=== PATIENT | female | born 1990 | race Hispanic/Latino ===

== ENCOUNTER 2019-11-24 13:31 | Emergency (ER) | payer MEDICAID, SELFPAY ==
[2019-11-24] VITALS (13 sets, daily range): BP systolic 104–111; BP diastolic 66–77; PULSE 86–102; RESP 12–28; TEMP 36.6; O2SAT 98–100
--- NOTE | ~2019-11-24 | CT_ITS ---
EXAMINATION: CTA chest PE protocol EXAM DATE: 11/24/2019 16:24 INDICATION: Dyspnea. Frequency and chest pain. Exposure to COVID 19. TECHNIQUE: Spiral CTA of the chest (pulmonary arteries) was performed with 100 cc Omnipaque 350 intr avenous contrast injection. Images were acquired during the pulmonary arterial phase. Coronal maxi mum intensity projection 3D-reconstructions were created by the technologist on dedicated workstation . Axial, coronal and sagittal reformatted images were reviewed. The dose-length product (DLP) for t his examination was 158.97 mGy-cm. The exposure was tailored according to patient size (auto mA exp osure control), and iterative reconstruction (ASIR) was used as additional dose reduction technique. There is no prior study for comparison. FINDINGS: There are no pulmonary emboli in the 1st through 3rd order (central and interlobar) pulmon abdias arteries. Some loss of attenuation in the left segmental pulmonary arteries due to respiratory m otion, but no intraluminal filling defects suspected. No thoracic aortic dissection. Small region of groundglass airspace disease in the right middle lobe perihilar region which is nonspecific, but c ould be acute lung injury, acute infectious process. There are no pleural or pericardial effusions. Tracheobronchial tree is patent. There is no mediastinal, hilar or axillary lymphadenopathy. Th ere is no pneumothorax. Heart normal in size. No evidence of coronary arterial calcification. Up per abdomen is unremarkable. There is thoracic spondylosis without osteoblastic or osteolytic lesio ns identified. IMPRESSION: 1. Limited left segmental evaluation, but no pulmonary emboli are suspected. 2. Small amount of right middle lobe groundglass acute airspace disease, likely acute infectious pro cess. Could be acute lung injury (in patient with known exposure to COVID 19). Reviewed, dictated and finalized at location A. IMPRESSION: 1. Limited left segmental evaluation, but no pulmonary emboli are suspected. 2. Small amount of right middle lobe groundglass acute airspace disease, likel y acute infectious process. Could be acute lung injury (in patient with known e xposure to COVID 19).
--- NOTE | ~2019-11-24 | XR_ITS ---
XR chest 1V 11/24/2019 14:35 Indication: Shortness of breath and cough Procedure: 2 view chest Comparison: No prior studies for comparison. Findings: Borderline heart size. No focal air space disease, pulmonary edema, pleural effusion or maureen pected pneumothorax. No acute osseous abnormality. Impression: 1: No acute cardiopulmonary disease. Reviewed, dictated and finalized at location A. Impression: 1: No acute cardiopulmonary disease.
--- NOTE | 2019-11-24 13:44 | ECG_ITS ---
Measurements Intervals [place] Rate: 85 P: 16 VT: 181 QRS: 65 QRSD: 85 T: 5 QT: 338 QTc: 403 Interpretive Statements SINUS RHYTHM DELAYED PRECORDIAL R/S TRANSITION BORDERLINE ST-T WAVE ABNORMALITY- INFERIOR LEADS BASELINE ARTIFACT- I, II, AVR BORDERLINE ECG Electronically Signed On 11-24-2019 14:11:19 CDT by Jean Orellana D.O.
[2019-11-24 13:54] LABS: Basophils Percent Auto 0.5 % (0.2-1.2); Eosinophils Percent Auto 0.2 % (0-4.4); Hemoglobin 11.5 g/dL (12.0-15.0); Immature Granulocyte Absolute 0.01 K/mm3 (0.00-0.031); Immature Granulocyte Percent A 0.2 % (0-0.5); Lymphocytes Absolute Auto 1.65 K/mm3 (0.9-3.2); Lymphocytes Percent Auto 38.2 % (18.3-44.2); Mean Corpuscular HGB Conc 33.8 g/dl (32-36); Mean Corpuscular Hemoglobin 30.3 pg (26-34); Mean Corpuscular Volume 89.7 fl (80-100); Mean Platelet Volume 11.1 fl (7.4-10.4); Monocytes Absolute Auto 0.5 K/mm3 (0.1-0.6); Monocytes Percent Auto 11.3 % (2.6-8.5); Neutrophils Absolute Auto 2.1 K/mm3 (1.3-6.7); Neutrophils Percent Auto 49.6 % (45.5-73.1); Platelet Count Result 179 k/mm3 (150-375); Red Blood Count 3.79 M/mm3 (4.2-5.4); Red Cell Distribution Width 13.3 % (11.5-14.5); White Blood Count 4.3 K/mm3 (4.5-10.0)
[2019-11-24 14:06] LABS: Blood Urea Nitrogen 3 mg/dL (7-17); Calcium 8.5 mg/dL (8.4-10.2); Carbon Dioxide 20 mmol/L (22-30); Chloride 108 mmol/L (98-107); Estimated CRCL calculation 107 ml/min; Estimated Glomerular Filt Rate > 60; Glucose 92 mg/dL (65-105); Potassium 3.5 mmol/L (3.4-5.0); Sodium 136 mmol/L (137-145)
--- NOTE | 2019-11-24 14:28 | ED.GENADULT ---
HPI - General Adult General Chief complaint: Shortness of Breath/Dyspnea Stated complaint: cough, sob, family with covid Time Seen by Provider: 11/24/19 14:25 Source: patient Mode of arrival: ambulatory Limitations: no limitations History of Present Illness HPI narrative: Patient is a 29-year-old female, currently 35 weeks , who presents to the emergency department for evaluation of multiple symptoms including cough, shortness of breath with exertion, nephrology, chest pain, rhinorrhea, sore throat and congestion. Patient lives with an uncle who had a positive coronavirus test. Patient denies any nausea, vomiting, belly pain, loss of fluids or vaginal bleeding. She has had good movement. She follows with an [facility] in [place], she has been driving back and forth for appointments and plans to deliver in [place] at this time. Patient reports aching chest pain, dry cough over the past week. No shortness of breath currently. No pain with deep inspiration. No leg swelling, leg pain. Related Data Home Medications Medication Instructions Recorded Confirmed no.144-folic acid mcg PO 11/24/19 [] Allergies Allergy/AdvReac Type Severity Reaction Status Date / Time No Known Allergies Allergy Verified 11/24/19 13:38 Review of Systems Review of Systems: Narrative: CONSTITUTIONAL: Reports fever and chills EYES: Denies visual changes, redness, or discharge. ENT: Reports rhinorrhea, congestion, sore throat CARDIOVASCULAR: Reports chest pain, denies palpitations, or edema. RESPIRATORY: Reports cough and shortness of breath GASTROINTESTINAL: Denies abdominal pain, nausea, vomiting, reports diarrhea GENITOURINARY: Denies dysuria or hematuria. SKIN: Denies rash or itching. MUSCULOSKELETAL: Denies back pain, joint pain, or myalgia. NEUROLOGIC: Denies headache, numbness, or weakness. [facility] Past Medical History Medical History (Updated 11/24/19 @ 16:42 by Xiomara Flower MD) Social History Social History (Updated 11/24/19 @ 14:45 by Xiomara Flower MD) Smoking status: Never smoker Alcohol intake: never Substance use: never Living arrangements: with family Gender identity (if verbalized by the patient): Female Exam Narrative: Exam Narrative: GENERAL: Awake, alert, conversant HEAD: Normocephalic, atraumatic. EYES: PERRLA and EOMI. ENT: Nares clear, no rhinorrhea or epistaxis. Mucous membranes moist. NECK: Supple. CHEST: No respiratory distress, breathing even and non labored HEART: Regular rate, sinus rhythm ABDOMEN: Gravid, fundus palpable below the xiphoid, non distended, non tender EXTREMITIES: Normal range of motion. No edema. SKIN: Warm, dry, no rash. NEURO:No focal deficits. Alert and oriented x3 Course Course Emergency Course: Patient is a 29-year-old female who presented for myriad of symptoms, with known coronavirus exposure. Patient had influenza in September, has been reporting some chest pain without any acute ischemic findings on EKG. Chest x-ray without evidence of pneumonia. Laboratory results are reassuring. No sign of severe coronavirus infection based on laboratory studies. Did not obtain a d-dimer on this patient because she is would likely be positive, given chest pain, dyspnea, did obtain a CTA which is negative for PE. There is possible acute lung findings that would be consistent with coronavirus infection, but patient was ambulated in the emergency department and had no transient oxygen desaturation. No severe tachycardia. If this is early bacterial pneumonia, will treat with cefdinir. At this point, no severe disease processes. We did send a coronavirus test, and she will be updated as to the results of that. At this point, continue to recommend supportive care, Tylenol for fever, OB follow-up as scheduled and to mask if out in public as she could spread the infection to others. Vital Signs Vital signs: Vital Signs Temperatu
[2019-11-24 15:23] LABS: Troponin I < 0.012 ng/mL (0.000-0.034)
[2019-11-24 15:24] LABS: Prothrombin Time 13.2 Seconds (11.1-14.7)
[2019-11-24 15:25] LABS: Partial Thromboplastin Time 27.7 SECONDS (22.3-36.8)
--- NOTE | 2019-11-24 15:25 | PC.NURSE ---
Additional blood collected and oropharynx swabbed for covid testing.
--- NOTE | 2019-11-24 15:35 | PC.NURSE ---
Pt ambulatory around the room with pulse oximetry in place. Pt states feels short of breath but that this is not unusual. Sp02 remained at 100% throughout ambulation.
[2019-11-24 15:38] LABS: Lactate Dehydrogenase 375 U/L (313-618)
[2019-11-24 15:56] LABS: Ferritin 8.89 ng/mL (6.24-137)
[2019-11-27 08:03] LABS: SARS-CoV-2 RNA PCR Positive
== END 2019-11-24 17:10 | disposition home or self-care (01) ==
PROVIDERS: Emergency Medicine; Emergency Provider Emergency Medicine
DX: O98.513 Other viral diseases complicating pregnancy, third trimester (principal); U07.1 COVID-19; O99.513 Diseases of the respiratory system complicating pregnancy, third trimester; J06.9 Acute upper respiratory infection, unspecified; R94.31 Abnormal electrocardiogram [ECG] [EKG]; Z3A.35 35 weeks gestation of pregnancy
CPT/HCPCS: 36415; 71045; 71275; 80048; 82728; 83615; 84484; 85025; 85610; 85730; 87635; 93005; 99284; C9803; Q9967; U0003

== ENCOUNTER 2019-11-28 02:48 | Emergency (ER) | payer MEDICAID, SELFPAY ==
--- NOTE | ~2019-11-28 | XR_ITS ---
XR chest 1V portable 11/28/2019 03:51 Indication: Cough. Shortness of breath. Procedure: 2 view chest Comparison: 11/24/2019 Findings: Subtle right middle lobe infiltrate. Heart size normal. No pleural effusion or pneumothorax . No acute osseous abnormality. Impression: 1: Subtle right middle lobe infiltrate which may represent atelectasis or developing pneumonia. Reviewed, dictated and finalized at location A. Impression: 1: Subtle right middle lobe infiltrate which may represent atelectasis or devel oping pneumonia.
--- NOTE | 2019-11-28 03:12 | ECG_ITS ---
Measurements Intervals [place] Rate: 96 P: 36 MO: 182 QRS: 76 QRSD: 88 T: 11 QT: 336 QTc: 426 Interpretive Statements SINUS RHYTHM POSSIBLE LEFT ATRIAL ENLARGEMENT DELAYED PRECORDIAL R/S TRANSITION BORDERLINE ECG Electronically Signed On 11-28-2019 7:23:20 CDT by Jean Orellana D.O.
[2019-11-28 03:17] VITALS: BP 106/64; PULSE 92; RESP 21; TEMP 37.1; O2SAT 100
--- NOTE | 2019-11-28 03:20 | PC.NURSE ---
called ob to have pt's baby monitored.
--- NOTE | 2019-11-28 03:25 | PC.NURSE ---
OB RN at pt bedside.
--- NOTE | 2019-11-28 03:26 | ED.SOB ---
HPI - SOB/Dyspnea General Chief Complaint: Shortness of Breath/Dyspnea Stated Complaint: +COVID SOB, Time Seen by Provider: 11/28/19 02:56 Source: patient Mode of arrival: ambulatory Limitations: no limitations History of Present Illness HPI Narrative: Patient is a 29-year-old female who presents to the emergency department with complaint of cough and shortness of breath. Patient was seen in this emergency department on 11/24/2019 and diagnosed with COVID-19. Patient is currently 36 weeks , G2, P1. She just moved to [place] from [place] in the past month and plans to go back to her home in [place] when she recovers from COVID-19 to deliver her baby with the OB she has been seeing this . Patient states she initially started out with fever, sore throat, headache, and nasal congestion. She had known COVID-19 sick contacts. Patient reports developing cough and shortness of breath over the last couple of days. Patient states she has not felt her baby move since 6 PM last night. MD elicited complaint: shortness of breath and cough Context: recent illness Related Data Home oxygen amount: none Home Medications Medication Instructions Recorded Confirmed no.144-folic acid mcg PO 11/24/19 [] Allergies Allergy/AdvReac Type Severity Reaction Status Date / Time No Known Allergies Allergy Verified 11/24/19 13:38 Review of Systems Review of Systems: All systems reviewed & are unremarkable except as noted in HPI and below Constitutional: Constitutional: Reports fever(s) ENT: Reports nasal congestion and Reports sore throat Cardiovascular: Cardiovascular: Reports chest pain (Burning) Respiratory: Respiratory: Reports cough and Reports dyspnea Gastrointestinal: Gastrointestinal: Denies abdominal pain, Reports diarrhea, Reports nausea and Reports vomiting Genitourinary: Genitourinary: Denies abnormal vaginal bleeding, Denies dysuria, Denies vaginal discharge and Reports other (Denies contractions) [facility] Past Medical History Medical History Social History Social History Smoking status: Never smoker Alcohol intake: never Substance use: never Gender identity (if verbalized by the patient): Female Exam Const: General: cooperative, no acute distress and alert Nutritional Appearance: well nourished Orientation/consciousness: patient oriented x3 Limitations: no limitations Resp: Effort & Inspection: normal respiratory effort, Actively coughing actively coughing and tachypneic Auscultation: clear to auscultation bilaterally Cardio: Rate: tachycardic Rhythm: regular rhythm GI: GI Palp: Yes Soft to palpation and No Tenderness to palpation present (GI) Auscultation: normal bowel sounds : Other: Uterus gravid, consistent with dates. No palpable contractions noted Skin: General skin exam: normal color Neuro: General: patient oriented x3 Cognition (Neuro): normal cognition Speech: normal speech Extrem: General: normal to inspection, full ROM and no clubbing, cyanosis or edema Psych: Mental Status: mental status grossly normal Affect: normal affect Attitude: cooperative Course Course Emergency Course: Patient placed on monitoring by OB nurse. heart rate 145. Patient with 15 beat accelerations. No evidence of contractions or labor. Nonstress test reactive. Patient given 1 L of IV fluids with improvement in heart rate. Patient with O2 saturation of 100% on room air. Chest x-ray unchanged from prior ED visit. Patient counseled on ongoing symptomatic management and strict quarantine precautions except for healthcare as needed Vital Signs Vital signs: Vital Signs Temperature 98.7 F 11/28/19 03:17 Pulse Rate 92 11/28/19 03:17 Respiratory Rate 21 H 11/28/19 03:17 Blood Pressure 106/64 11/28/19 03:17 Pulse Oxime
[2019-11-28] MEDS: LACTATED RINGERS 1,000 ML 999 ML IV CONT (03:48)
[2019-11-28 03:49] VITALS: BP 102/73; PULSE 91; PULSE 93; RESP 14; O2SAT 100
[2019-11-28 04:08] LABS: Basophils Percent Auto 0.2 % (0.2-1.2); Hematocrit 33.9 % (37.0-47.0); Hemoglobin 11.6 g/dL (12.0-15.0); Immature Granulocyte Absolute 0.01 K/mm3 (0.00-0.031); Immature Granulocyte Percent A 0.2 % (0-0.5); Lymphocytes Absolute Auto 1.66 K/mm3 (0.9-3.2); Lymphocytes Percent Auto 37.1 % (18.3-44.2); Mean Corpuscular HGB Conc 34.2 g/dl (32-36); Mean Corpuscular Hemoglobin 30.4 pg (26-34); Mean Corpuscular Volume 88.7 fl (80-100); Monocytes Absolute Auto 0.3 K/mm3 (0.1-0.6); Monocytes Percent Auto 7.6 % (2.6-8.5); Neutrophils Absolute Auto 2.5 K/mm3 (1.3-6.7); Neutrophils Percent Auto 54.9 % (45.5-73.1); Platelet Count Result 169 k/mm3 (150-375); Red Blood Count 3.82 M/mm3 (4.2-5.4); Red Cell Distribution Width 13.2 % (11.5-14.5); White Blood Count 4.5 K/mm3 (4.5-10.0)
[2019-11-28 04:17] LABS: Add Urine Microscopic? NO; Appearance Urine Clear (Clear); Bilirubin Urine Negative (Negative); Blood Urine Negative (Negative); Color Urine Straw (Yellow); Glucose Urine UA Negative (Negative); Ketones Urine Negative (Negative); Leukocyte Esterase Ur Negative LEU/UL (Negative); Nitrate Urine Negative (Negative); Protein Urine Negative (Negative); Specific Grav Ur 1.005 (1.001-1.035); Urobilinogen Urine Negative mg/dL (<2.0)
[2019-11-28 04:19] LABS: Alanine Aminotransferase 14 U/L (4-35); Albumin Level 3.4 g/dL (3.5-5.1); Alkaline Phosphatase 100 U/L (38-126); Aspartate Amino Transferase 27 U/L (14-36); Bilirubin,Total 0.3 mg/dL (0.2-1.3); Carbon Dioxide 20 mmol/L (22-30); Chloride 106 mmol/L (98-107); Estimated Glomerular Filt Rate > 60; Glucose 73 mg/dL (65-105); Potassium 3.5 mmol/L (3.4-5.0); Sodium 134 mmol/L (137-145)
[2019-11-28 04:21] LABS: Blood Urea Nitrogen < 2 mg/dL (7-17)
[2019-11-28 04:28] VITALS: BP 107/75; PULSE 97; RESP 23; O2SAT 100
[2019-11-28 04:31] LABS: Troponin I < 0.012 ng/mL (0.000-0.034)
[2019-11-28 05:15] VITALS: BP 118/76; PULSE 84; RESP 23; O2SAT 98
== END 2019-11-28 05:15 | disposition home or self-care (01) ==
PROVIDERS: Emergency Provider Emergency Medicine
DX: O98.513 Other viral diseases complicating pregnancy, third trimester (principal); U07.1 COVID-19; E86.0 Dehydration; Z3A.36 36 weeks gestation of pregnancy; R94.31 Abnormal electrocardiogram [ECG] [EKG]
CPT/HCPCS: 36415; 71045; 80053; 81003; 84484; 85025; 93005; 96360; 99284; J7120

== ENCOUNTER 2020-07-02 13:57 | Emergency (ER) | payer BC, SELFPAY ==
[2020-07-02 14:00] VITALS: BP 111/65; PULSE 79; RESP 20; TEMP 36.3; O2SAT 100
--- NOTE | 2020-07-02 14:26 | ED.GENADULT ---
HPI - General Adult General Chief complaint: Extremity Injury, Upper <Fred Richardson PA-C - Last Filed: 07/02/20 14:31> Stated complaint: Finger infection <Fred Richardson PA-C - Last Filed: 07/02/20 14:31> Time Seen by Provider: 07/02/20 14:03 <Fred Richardson PA-C - Last Filed: 07/02/20 14:31> Source: patient <JACKIE Parra Last Filed: 07/02/20 14:31> Mode of arrival: ambulatory <Fred Richardson PA-C - Last Filed: 07/02/20 14:31> Limitations: no limitations <Fred Richardson PA-C - Last Filed: 07/02/20 14:31> History of Present Illness HPI narrative: Patient a 29-year-old female who presents to emergency department for evaluation of right facial irritation noting slight swelling and tenderness along the lateral nail bed patient has been doing warm soaks and applying antibiotic ointment patient denies any fever chills lymphangitic streaking or purulent drainage patient on arrival to emergency department is in the room in no distress patient denies similar occurrence in the past <Fred Richardson PA-C - Last Filed: 07/02/20 14:31> Related Data Home medications: Home Medications Medication Instructions Recorded Confirmed no.144-folic acid mcg PO 11/24/19 [] <Fred Richardson PA-C - Last Filed: 07/02/20 14:31> Allergies/adverse reactions: Allergies Allergy/AdvReac Type Severity Reaction Status Date / Time No Known Allergies Allergy Verified 07/02/20 14:02 <Fred Richardson PA-C - Last Filed: 07/02/20 14:31> Review of Systems Review of Systems: Narrative: CONSTITUTIONAL: Denies fever, chills, or sweats. SKIN: Denies rash or itching. MUSCULOSKELETAL: Denies joint pain, or myalgia. NEUROLOGIC: Denies numbness, or weakness. <Fred Richardson PA-C - Last Filed: 07/02/20 14:31> PMFSH Past Medical History Medical History: Medical History (Updated 07/02/20 @ 14:31 by Fred Richardson PA-C) <Fred Richardson PA-C - Last Filed: 07/02/20 14:31> Social History Social History: Social History Smoking status: Never smoker Alcohol intake: never Substance use: never Gender identity (if verbalized by the patient): Female <Fred Richardson PA-C - Last Filed: 07/02/20 14:31> Exam Narrative: Exam Narrative: GENERAL: Well-appearing, well-nourished, and in no acute distress. HEAD: Normocephalic, atraumatic. EYES: PERRLA and EOMI. ENT: Nares clear, no rhinorrhea or epistaxis. Mucous membranes moist. EXTREMITIES: Normal range of motion. No edema. Slightly tender swollen area along the ulnar aspect of the thumb nail margin right thumb no lymphangitic streaking no fluctuance no cellulitic changes SKIN: Warm, dry, no rash. NEURO: No focal deficits. Alert and oriented x3. Neurovascularly intact PSYCH: Normal mood and affect. <Fred Richardson PA-C - Last Filed: 07/02/20 14:31> Course Course Emergency Course: Patient with paronychia does not appear to be infected likely resultant from ingrown fingernail felt appropriate for outpatient reevaluation <JACKIE Parra Last Filed: 07/02/20 14:31> Vital Signs Vital signs: Vital Signs Temperature 97.4 F L 07/02/20 14:00 Pulse Rate 79 07/02/20 14:00 Respiratory Rate 20 07/02/20 14:00 Blood Pressure 111/65 07/02/20 14:00 Pulse Oximetry 100 07/02/20 14:00 Temperature 97.4 F L 07/02/20 14:00 Pulse Rate 79 07/02/20 14:00 Respiratory Rate 20 07/02/20 14:00 Blood Pressure 111/65 07/02/20 14:00 Pulse Oximetry 100 07/02/20 14:00 <Fred Richardson PA-C - Last Filed: 07/02/20 14:31> Vital Signs Temperature 97.4 F L 07/02/20 14:00 Pulse Rate 79 07/02/20 14:00 Respiratory Rate 20 07/02/20 14:00 Blood Pressure 111/65 07/02/20 14:00 Pulse Oximetry 100 07/02/20 14:00 Temperature 97.4 F L 07/02/20 14:00 Pulse
== END 2020-07-02 14:42 | disposition home or self-care (01) ==
PROVIDERS: Emergency Provider General Practice
DX: L03.011 Cellulitis of right finger (principal); L60.0 Ingrowing nail
CPT/HCPCS: 10060; 99282

== ENCOUNTER 2022-09-23 16:49 | Emergency (ER) | payer SELFPAY ==
[2022-09-23 17:02] VITALS: BP 107/64; PULSE 83; RESP 16; TEMP 36.3; O2SAT 100
[2022-09-23 17:04] VITALS: BP 107/64; PULSE 83; RESP 16; TEMP 36.3; O2SAT 100
--- NOTE | 2022-09-23 17:19 | ED.URI ---
HPI - URI/Sore Throat General Chief Complaint: Upper Respiratory Infection Stated Complaint: SORE THROAT/FEVER/BODY ACHES Time Seen by Provider: 09/23/22 17:10 Source: patient, RN notes reviewed and old records reviewed Mode of arrival: ambulatory Limitations: no limitations History of Present Illness HPI Narrative: 32-year-old female who presents to [facility] with complaints of sore throat, fever, body aches which started yesterday. Patient reports that she had 101F fever yesterday and has felt achy, has taken Tylenol for her fever and symptoms along with hot tea and Theraflu. Patient reports that she had COVID 2 weeks ago. 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 MD elicited complaint: cough and sore throat Pertinent past history: other (Had COVID 2 weeks ago) Onset (ago): day(s) (day 2 of symptoms) Severity: severe Pain scale (0-10): 10 Able to tolerate fluids by mouth: Yes Exacerbating factors: swallowing Treatments prior to arrival: acetaminophen and other (hot tea and Theraflu) Related Data Home Medications Medication Instructions Recorded Confirmed propranolol 80 mg capsule,24 80 mg PO DAILY 09/23/22 09/23/22 hr,extended release Allergies Allergy/AdvReac Type Severity Reaction Status Date / Time No Known Allergies Allergy Verified 09/23/22 17:02 Review of Systems Review of Systems: CONSTITUTIONAL: Reports malaise, chills, sweats, or fever. EYES: Denies visual changes, redness, or discharge. ENT: Reports rhinorrhea, congestion, sinus pain, no otalgia positive for sore throat. CARDIOVASCULAR: Denies chest pain, palpitations, or edema. RESPIRATORY: Reports cough.? Denies dyspnea. GASTROINTESTINAL: Denies abdominal pain, nausea, vomiting, diarrhea SKIN: Denies rash or itching. MUSCULOSKELETAL: Reports myalgia. NEUROLOGIC: Denies headache. All systems reviewed & are unremarkable except as noted in HPI and below PMFSH Past Medical History Medical History COVID-19 virus infection August 2022 Migraine Social History Social History Smoking status: Never smoker Alcohol intake: never Substance use: never Living arrangements: with family Gender identity (if verbalized by the patient): Female Comments At time of signature, agree with nursing past medical, surgical, social and family history. There is no relevant family history pertinent to the presenting complaint Exam Narrative: GENERAL: Well-appearing, well-nourished, and in no acute distress. HEAD: Normocephalic EYES: PERRLA, conjunctivae clear ENT: Nares clear, turbinates edematous and erythematous, clear discharge. Mucous membranes moist. TM pearly leroy with dull light reflex bilaterally; no tragal tenderness. Oropharynx erythematous without lesions. Tonsils red enlarged and without exudate, no drooling, no hoarseness, no trismus, uvula midline. NECK: Supple. lymphadenopathy CHEST: Clear to auscultation, breath sounds equal. No wheezing, rhonchi, rales, or stridor. No respiratory distress, speaks in full sentences.SAO2 100% on room air HEART: Regular rate and rhythm. No murmur heard. SKIN: Warm, dry, no rash. NEURO: Alert and oriented x3. PSYCH: Normal mood and affect Course Course Emergency Course: Patient is aware of diagnosis, understands and agrees to treatment plan.? Anticipatory guidance given.? Patient agrees to follow-up as directed and is aware of reasons to seek care at the emergency department. Portions of this record may have been created with voice recognition software Level of Care: Express Care Visit Vital Signs Vital signs: Vital Signs Temperature 36.3 C L 09/23/22 17:02 Pulse Rate 83 09/23/22 17:02 Respiratory Rate 16 09/23/22 17:02 Blood Pressure 107/64
== END 2022-09-23 17:30 | disposition home or self-care (01) ==
PROVIDERS: Emergency Provider Registered Nurse
DX: J02.0 Streptococcal pharyngitis (principal); Z86.16 Personal history of COVID-19
CPT/HCPCS: 87880; 99213; G0463

== ENCOUNTER 2022-11-03 16:30 | Emergency (ER) | payer OTHER, SELFPAY ==
[2022-11-03 16:43] VITALS: BP 102/71; PULSE 72; RESP 16; TEMP 36.9; O2SAT 100
--- NOTE | 2022-11-03 16:48 | ED.URI ---
HPI - URI/Sore Throat General Chief Complaint: Upper Respiratory Infection Stated Complaint: SORE THROAT Time Seen by Provider: 11/03/22 16:49 Source: patient, family, RN notes reviewed and old records reviewed Mode of arrival: ambulatory Limitations: no limitations History of Present Illness HPI Narrative: 32 year old female who presents to [facility] with complaints of sore throat and congestion for the past several days. Patient reports that she has been taking OTC Theraflu and hot tea for her symptoms without resolution. Patient reports that her throat pain is 8/10 with painful swallowing. Patient was treated for strep throat on 09/23/2022 with resolution of symptoms with antibiotic. Patient just recently found out she is only few weeks with last menses 09/16/2022. MD elicited complaint: sore throat, rhinorrhea and nasal congestion Pertinent past history: other (strep throat on 09/23/2022) Onset (ago): day(s) (4) Pain scale (0-10): 8 Able to tolerate fluids by mouth: Yes Exacerbating factors: swallowing Treatments prior to arrival: other (Theraflu and hot tea) Related Data Home Medications Medication Instructions Recorded Confirmed propranolol 80 mg capsule,24 80 mg PO DAILY 09/23/22 11/03/22 hr,extended release dextroamphetamine-amphetamine 10 10 mg PO DAILY 11/03/22 11/03/22 mg tablet Allergies Allergy/AdvReac Type Severity Reaction Status Date / Time No Known Allergies Allergy Verified 11/03/22 16:42 Review of Systems Review of Systems: CONSTITUTIONAL: Denies malaise, chills, sweats, or fever. EYES: Denies visual changes, redness, or discharge. ENT: Reports rhinorrhea, congestion, sinus pain,no otalgia positive for sore throat. CARDIOVASCULAR: Denies chest pain, palpitations, or edema. RESPIRATORY: Reports no cough.? Denies dyspnea. GASTROINTESTINAL: Denies abdominal pain, nausea, vomiting, diarrhea SKIN: Denies rash or itching. MUSCULOSKELETAL: Denies myalgia. NEUROLOGIC: Denies headache. All systems reviewed & are unremarkable except as noted in HPI and below PMFSH Past Medical History Medical History ADHD (attention deficit hyperactivity disorder) COVID-19 virus infection August 2022 Migraine Strep throat Social History Social History Smoking status: Never smoker Alcohol intake: never Substance use: never Living arrangements: with family Gender identity (if verbalized by the patient): Female Comments At time of signature, agree with nursing past medical, surgical, social and family history. There is no relevant family history pertinent to the presenting complaint Exam Narrative: GENERAL: Well-appearing, well-nourished, and in no acute distress. HEAD: Normocephalic EYES: PERRLA, conjunctivae clear ENT: Nares clear, turbinates edematous and erythematous, clear discharge. Mucous membranes moist. TM pearly leroy with dull light reflex bilaterally; no tragal tenderness. Oropharynx erythematous without lesions. Tonsils not enlarged and without exudate, no drooling, no hoarseness, no trismus, uvula midline.painful swallowing. NECK: Supple. No lymphadenopathy CHEST: Clear to auscultation, breath sounds equal. No wheezing, rhonchi, rales, or stridor. No respiratory distress, speaks in full sentences.no cough noted, SAO2 100% on room air HEART: Regular rate and rhythm. No murmur heard. SKIN: Warm, dry, no rash. NEURO: Alert and oriented x3. PSYCH: Normal mood and affect Course Course Emergency Course: Patient is aware of diagnosis, understands and agrees to treatment plan.? Anticipatory guidance given.? Patient agrees to follow-up as directed and is aware of reasons to seek care at the emergency department. Portions of this record may have been created with voice recognition software Level of Care: [facility] Care Visit Vital Si
== END 2022-11-03 17:09 | disposition home or self-care (01) ==
PROVIDERS: Emergency Provider Registered Nurse
DX: J06.9 Acute upper respiratory infection, unspecified (principal); F90.9 Attention-deficit hyperactivity disorder, unspecified type; Z86.16 Personal history of COVID-19
CPT/HCPCS: 87081; 87880; 99213; G0463

== ENCOUNTER 2022-11-23 15:10 | Outpatient (CLI) | payer OTHER, SELFPAY ==
--- NOTE | ~2022-11-23 | US_ITS ---
EXAMINATION: US OB <=14 wk fetus w TV DATE: 11/23/2022 15:59 INDICATION: . TECHNIQUE: Real-time transabdominal and transvaginal pelvic ultrasound was performed. COMPARISON: None. FINDINGS: TRANSABDOMINAL ULTRASOUND: The uterus measures 11.0 x 7.0 x 8.0 cm. TRANSVAGINAL ULTRASOUND: There is an intrauterine gestational sac. A yolk sac is identified. The fet al crown rump length measures 2.1 cm, which correlates with an estimated gestational age of 8 weeks a nd 5 day(s) (+/-) 5 day(s). heart motion is identified measuring 164 beats per minute (bpm) by M-mode Doppler. There is a small subchorionic hematoma. The right ovary measures 4.1 x 3.1 x 3.5 cm. The left ovary measures 3.5 x 2.1 x 2.9 cm. There is no free fluid in the pelvis. IMPRESSION: 1. Single living intrauterine gestation with estimated date of delivery of 06/30/2023. 2. Small subchorionic hematoma. Reviewed, dictated and finalized at location E.
== END 2022-11-23 15:11 | disposition home or self-care (01) ==
PROVIDERS: Visit Provider Registered Nurse
DX: Z34.90 Encounter for supervision of normal pregnancy, unspecified, unspecified trimester (principal); Z3A.00 Weeks of gestation of pregnancy not specified
CPT/HCPCS: 76801; 76817

== ENCOUNTER 2022-12-19 13:59 | Outpatient (RCR) | payer OTHER, SELFPAY ==
[2022-12-19 14:37] LABS: Hematocrit 37.1 % (37.0-47.0); Hemoglobin 12.7 g/dL (12.0-15.0); Mean Corpuscular HGB Conc 34.2 g/dl (32-36); Mean Corpuscular Hemoglobin 31.4 pg (26-34); Mean Corpuscular Volume 91.8 fl (80-100); Mean Platelet Volume 9.9 fl (7.4-10.4); Platelet Count Result 228 k/mm3 (150-375); Red Blood Count 4.04 M/mm3 (4.2-5.4); Red Cell Distribution Width 13.3 % (11.5-14.5); White Blood Count 6.3 K/mm3 (4.5-10.0)
[2022-12-19 14:58] LABS: Appearance Urine Turbid (Clear); Bacteria Urine Rare /hpf; Bilirubin Urine Negative (Negative); Blood Urine Negative (Negative); Color Urine Yellow (Yellow); Glucose Urine UA Negative (Negative); Ketones Urine Negative (Negative); Leukocyte Esterase Ur Negative LEU/UL (NEGATIVE); Nitrate Urine Negative (Negative); Non Pathogenic Casts 0-2; Protein Urine Negative (Negative); Specific Grav Ur 1.018 (1.001-1.035); Squamous Epithelial Cell Urine Few /hpf (Few); Urobilinogen Urine 0.2 mg/dL (<2.0); WBC Urine 0-5 /hpf (0-3)
[2022-12-19 15:10] LABS: Add Urine Microscopic? YES
[2022-12-19 15:16] LABS: Thyroid Stimulating Hormone 0.963 uIU/mL (0.465-4.680)
[2022-12-19 15:25] LABS: HIV 1/2 Ab P24 Ag Result Negative (Negative)
[2022-12-19 17:31] LABS: Vitamin D 25 Hydroxy 28.1 ng/mL
[2022-12-19 17:53] LABS: Hepatitis B Surface Antigen Negative (Negative)
[2022-12-19 18:09] LABS: Hepatitis C Virus Antibody Negative (Negative)
[2022-12-19 18:35] LABS: Hepatitis B Surface Antigen 0.06 S/C; Hepatitis C Virus Antibody 0.04 S/C; Rubella IgG Antibody > 110.0 IU/ML
[2022-12-20 08:53] LABS: Rapid Plasma Reagin Non-Reactive (NonReactive)
[2022-12-26 16:20] LABS: Hematocrit 38.1 % (35.0-45.0); Hemoglobin 12.9 g/dL (11.7-15.5); MCH 31.8 pg (27.0-33.0); MCV 93.8 fL (80.0-100.0); RDW 13.2 % (11.0-15.0); Red Blood Cell Count 4.06 Mill/uL (3.80-5.10)
== END 2023-03-19 23:59 | disposition home or self-care (01) ==
LOC: ANHLAB 13:59
PROVIDERS: Visit Provider Obstetrics & Gynecology
DX: Z11.4 Encounter for screening for human immunodeficiency virus [HIV] (principal); O36.0190 Maternal care for anti-D [Rh] antibodies, unspecified trimester, not applicable or unspecified; Z3A.00 Weeks of gestation of pregnancy not specified
CPT/HCPCS: 36415; 81001; 82306; 83021; 84443; 85027; 86592; 86703; 86762; 86787; 86803; 86850; 86900; 86901; 87086; 87340; G0432

== ENCOUNTER 2023-01-19 02:14 | Emergency (ER) | payer OTHER, SELFPAY ==
[2023-01-19 02:22] VITALS: BP 113/63; PULSE 70; RESP 14; TEMP 36.4; O2SAT 100
[2023-01-19 02:41] LABS: Appearance Urine Clear (Clear); Bilirubin Urine Negative (Negative); Blood Urine Negative (Negative); Color Urine Yellow (Yellow); Glucose Urine UA Negative (Negative); Ketones Urine Negative (Negative); Leukocyte Esterase Ur Negative LEU/UL (Negative); Nitrate Urine Negative (Negative); Protein Urine Negative (Negative); Specific Grav Ur 1.019 (1.001-1.035); Urobilinogen Urine 0.2 mg/dL (<2.0); pH Urine 6.5 (5.0-9.0)
[2023-01-19] MEDS: SODIUM CHLORIDE 0.9% IV 1,000 ML 999 ML IV CONT (02:48)
[2023-01-19 02:52] LABS: Add Urine Microscopic? NO
[2023-01-19 02:56] LABS: Basophils Percent Auto 0.5 % (0.2-1.2); Eosinophils Percent Auto 0.5 % (0-4.4); Hematocrit 38.1 % (37.0-47.0); Hemoglobin 12.8 g/dL (12.0-15.0); Immature Granulocyte Absolute 0.02 K/mm3 (0.00-0.031); Immature Granulocyte Percent A 0.3 % (0-0.5); Lymphocytes Absolute Auto 2.79 K/mm3 (0.9-3.2); Lymphocytes Percent Auto 36.8 % (18.3-44.2); Mean Corpuscular HGB Conc 33.6 g/dl (32-36); Mean Corpuscular Hemoglobin 31.1 pg (26-34); Mean Corpuscular Volume 92.5 fl (80-100); Mean Platelet Volume 10.1 fl (7.4-10.4); Monocytes Absolute Auto 0.6 K/mm3 (0.1-0.6); Monocytes Percent Auto 8.4 % (2.6-8.5); Neutrophils Absolute Auto 4.1 K/mm3 (1.3-6.7); Neutrophils Percent Auto 53.5 % (45.5-73.1); Platelet Count Result 222 k/mm3 (150-375); Red Blood Count 4.12 M/mm3 (4.2-5.4); Red Cell Distribution Width 12.8 % (11.5-14.5); White Blood Count 7.6 K/mm3 (4.5-10.0)
--- NOTE | 2023-01-19 02:58 | ED.GENADULT ---
HPI - General Adult General Chief complaint: FINANCIAL INVESTMENT MANAGER Stated complaint: I think I have kidney stones Time Seen by Provider: 01/19/23 02:37 History of Present Illness HPI narrative: 32-year-old female presented the emergency department for evaluation of right lower quadrant pain. Patient is 17 weeks and has followed up with Dr. Pendleton. Patient states that she has had worsening right lower quadrant pain over the last few days. Patient states she has been having some pain with urination. Patient does feel motion. Patient denies any vaginal bleeding vaginal discharge. Patient denies any hematuria. Related Data Home Medications Medication Instructions Recorded Confirmed prenat.vits,shi,nae-vobr-zfgry 1 tablet PO DAILY 11/20/22 12/05/22 methylphenidate HCl 15 mg 15 mg PO DAILY 12/25/22 capsule,extended release (40-60) sprinkle Allergies Allergy/AdvReac Type Severity Reaction Status Date / Time No Known Allergies Allergy Verified 01/19/23 02:26 Review of Systems Review of Systems: All systems reviewed & are unremarkable except as noted in HPI and below PMFSH Past Medical History Medical History ADHD (attention deficit hyperactivity disorder) COVID-19 virus infection August 2022 History of vaginal delivery Migraine Strep throat Surgical History Surgical History [place]ad[place] teeth removed Family History Family History Father Diabetes mellitus Hypertension Mother Breast cancer Social History Social History Smoking status: Never smoker Alcohol intake: never Substance use: never Lack of Transportation: No Lack of Food: Never True Current Housing: I Have Housing Concerned About Future Housing: No Difficulty Paying Gas/Electric Bills: No Difficulty Paying for Meds: No Currently Unemployed: No Education: Bachelor's Degree Difficulty w/ Childcare or Family Care: No Living arrangements: with family Occupation/Education: occupation Gender identity (if verbalized by the patient): Female Sexual Orientation (if Verbalized by the Patient): Straight or Heterosexual Spiritual care concerns: No Exam Narrative: APPEARANCE: Well appearing, no pain, no distress, well-nourished. HEAD: normocephalic, atraumatic. EYES: PERRLA/EOMI, conjunctivae clear. NOSE: Normal no drainage NECK: Supple. No adenopathy, no masses. RESPIRATORY: Airway patent, respirations nonlabored. Clear to auscultation bilaterally, no rales, rhonchi, wheezing. CARDIOVASCULAR: Regular rate and rhythm without murmurs rubs or gallops. ABDOMINAL: Soft, mild suprapubic tenderness to palpation MUSCULOSKELETAL: Moves all extremities. Strength/ROM intact, No edema, No calf tenderness. NEURO: Alert. Cranial nerves II through XII intact. Grossly intact SKIN: Warm, dry. Normal Color Course Course Emergency Course: 32-year-old female that is approximately 17 weeks presented emerged department for evaluation of right lower quadrant pain. Patient was afebrile with no leukocytosis. CMP shows no significant abnormalities. UA shows no evidence of infection. Patient does feel improved with rehydration. Patient was encouraged close follow-up with her primary care physician along with FORMING PROCESS WORKER. All question concerns were addressed. Patient states he does have Reglan at home for nausea control. Patient was encouraged to drink more water. heart tones were measured and were within normal limits. Vital Signs Vital signs: Vital Signs Temperature 97.6 F 01/19/23 02:22 Pulse Rate 70 01/19/23 02:22 Respiratory Rate 14 01/19/23 02:22 Blood Pressure 113/63 01/19/23 02:22 Pulse Oximetry 100 01/19/23 02:22 Oxygen Delivery Room Air 12/28
[2023-01-19 03:07] LABS: Alanine Aminotransferase 14 U/L (6-35); Albumin Level 3.7 g/dL (3.5-5.1); Alkaline Phosphatase 35 U/L (38-126); Anion Gap 7 mmol/L (8-16); Aspartate Amino Transferase 20 U/L (14-36); Bilirubin,Total 0.3 mg/dL (0.2-1.3); Blood Urea Nitrogen 5 mg/dL (7-17); Calcium 8.6 mg/dL (8.4-10.2); Carbon Dioxide 21 mmol/L (22-30); Chloride 105 mmol/L (98-107); Estimated CRCL calculation 122 ml/min; Estimated Glomerular Filt Rate > 60; Glucose 87 mg/dL (65-110); Lactic Acid Reflex 1.3 mmol/L (0.7-2.0); Potassium 3.7 mmol/L (3.4-5.0); Sodium 133 mmol/L (137-145)
[2023-01-19 03:34] VITALS: BP 107/74; PULSE 75; RESP 14; O2SAT 100
== END 2023-01-19 04:35 | disposition home or self-care (01) ==
PROVIDERS: Emergency Provider Emergency Medicine
DX: O26.892 Other specified pregnancy related conditions, second trimester (principal); R10.31 Right lower quadrant pain; O99.342 Other mental disorders complicating pregnancy, second trimester; F90.9 Attention-deficit hyperactivity disorder, unspecified type; Z86.16 Personal history of COVID-19; Z3A.17 17 weeks gestation of pregnancy
CPT/HCPCS: 36415; 80053; 81003; 83605; 85025; 96360; 99283; J7030

== ENCOUNTER 2024-01-16 16:32 | Outpatient (CLI) | payer OTHER, SELFPAY ==
--- NOTE | ~2024-01-16 | XR_ITS ---
EXAMINATION: XR knee LT 3V DATE: 01/16/2024 16:49 INDICATION: Left knee pain TECHNIQUE: Standing AP, lateral and sunrise views of the left knee were obtained. COMPARISON: None. FINDINGS: Alignment is normal. No fracture. Joint spaces are normal. No joint effusion. Soft tissues are unrem arkable. IMPRESSION: 1. Normal left knee radiographs. Reviewed, dictated and finalized at location A.
== END 2024-01-16 16:33 | disposition home or self-care (01) ==
LOC: ANHIMG 16:33
PROVIDERS: PCP Family Medicine; Visit Provider Physician Assistant Medical
DX: M25.562 Pain in left knee (principal)
CPT/HCPCS: 73562

== ENCOUNTER 2024-04-10 14:57 | Outpatient (CLI) | payer OTHER, SELFPAY ==
[2024-04-14 17:09] LABS: Thyroid Peroxidase Antibodies 109 IU/mL (<9)
== END 2024-04-10 14:58 | disposition home or self-care (01) ==
LOC: ANHLAB 14:58
PROVIDERS: PCP Family Medicine; Visit Provider Physician Assistant Medical
DX: E03.9 Hypothyroidism, unspecified (principal); R76.8 Other specified abnormal immunological findings in serum
CPT/HCPCS: 36415; 84439; 84443; 86376

== ENCOUNTER 2024-04-30 14:45 | Outpatient (RCR) | payer OTHER, SELFPAY ==
--- NOTE | 2024-03-25 14:18 | OPREHPOC ---
Outpatient Therapy Plan of Care This is a Multidisciplinary Plan of Care that may contain components documented by all disciplines (PT, OT, and ST.) PT Problem 1 PT Problem #1 Knowledge Deficit PT Goal 1 Goal / Goal Update *indep with HEP Target Visit 6 PT Problem 2 PT Problem #2 Pain PT Goal 1 Goal / Goal Update 1* pt report pain at worst rating of 3/10 2*LE Functional scale rating of 30% limitation in activity level 3* pt report standing/walking tolerance of 3 hours before increase in pain 4* supine hamstring stretch to 70' without pain increase Target Visit 6 PT Problem 3 PT Problem #3 Impaired Strength PT Goal 1 Goal / Goal Update increase strength of L hip and knee, to improve stability to knee joint: 1* single leg standing x 20 seconds 2* mat strengthening exercises x 15 reps with 3# ankle wt Target Visit 6
--- NOTE | 2024-03-25 14:18 | PTOPEVAL1 ---
Assessment and note entered by Vonda Guthrie, PT Evaluation Information Assessment Status Evaluation ICD-10 Condition Codes (PT) Pain in left knee M25.562,R26.9,Weakness R53.1 Onset January 24, 2024 Subjective Information working out with running an incline at fitness center; after work out knee hurt and could not put weight on it; back of knee swollen; remains sore and swells in morning with pain in calf and to ball of foot, with ankle & calf swelling; after moving around, it eases; stopped work out, then few days ago, started walking on treadmill about 45 min, with more pain afterwards; did some water exercises yesterday. 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 Reported Pain Level Pain Score Self Report Additional Pain Score Comments pain range in the past week 1-8/10; anterior patella, posterior knee> calf and ball of foot with swelling at times; decrease pain: sit, rest, ice; stretch knee extension, gastroc stretch increase pain: standing/walking 2 hours; squatting no over the counter pain meds; have foam roll and used it some also; Assessment PT Clinical Summary Donna has the diagnosis of L knee pain, onset after running on an incline treadmill and fitness workout. She is active, works as RN at hospital and usually runs 5-6 miles at a time. Since the onset of pain, has not been running. LE Functional Scale rating of 49% limitation in activity level. Pain is increased with knee flexion, squatting, and standing on one leg. With the evaluation: ROM of L hip, knee and ankle are WNL, except hamstring stretch in supine is 50' due to pain; Slight decrease in L LE strength; single leg standing R 30+/ L 3 seconds- with increase pain; tenderness over popliteal crease, distal and lateral patella; Skilled PT services are indicated for knee pain-- possible meniscal tear: modalities to decrease pain, therapeutic exercises to increase strength and stability to knee with education for HEP and pain control. Plan of Care Interventions Electrical Stimulation,Hot Pack/Cold Pack,Manual Therapy,Neuro Re-education,Patient Education,Therapeutic Activities,Therapeutic Exercise,Ultrasound,Other Other Interventions taping PT Services Indicated Yes Treatment Frequency and 1-2x/wk for 6 visits Duration These treatments will address the objective and functional deficits as defined above. The patient will be advanced safely and appropriately in order for the patient to progress towards his/her prior level of function. Additional exercises will be introduced and as well as a comprehensive home exercise program upon discharge, if needed, ?to ensure carryover of functional gains achieved in the clinic. This treatment plan has been reviewed and agreement upon by the patient.
--- NOTE | 2024-04-13 14:18 | PCPTNOTE ---
pt did not show for today's appt. Called and left voice mail message to remind her of next appt.
--- NOTE | 2024-05-07 11:27 | PCPTNOTE ---
Patient cancelled today's progress note appointment due to sick children.
--- NOTE | 2024-05-25 13:59 | PCPTNOTE ---
Patient was a No Show/No Call for today's visit. Patient was scheduled for a progress note this date.
--- NOTE | 2024-05-29 14:36 | PTOPDC ---
Assessment and note entered by Vonda Guthrie, PT Discharge Report Assessment Status Discharge - Pt Not Present ICD-10 Condition Codes (PT) Pain in left knee M25.562,R26.9,Weakness R53.1 Onset January 24, 2024 Subjective Information pt was not seen this date Assessment PT Clinical Summary Donan was seen for 4 PT sessions, from Mar 25 to Apr 30. She did not show for 2 and called/canceled 1 appointment. Discharge PT due to not attending. The goals were not assessed. Plan of Care PT Services Indicated No
== END 2024-05-29 16:38 | disposition home or self-care (01) ==
LOC: ANHPT 14:45
PROVIDERS: PCP Family Medicine; Visit Provider Physician Assistant Medical
DX: M25.562 Pain in left knee (principal)
CPT/HCPCS: 97110; 97112; 97140; 97161; 97530